=== PATIENT | female | born 1975 | race Two or more races ===

== ENCOUNTER 2022-10-19 13:53 | Emergency (ER) | payer OTHER ==
[~2022-10-19] VITALS: Ht 157.5 cm; Wt 76.2 kg
[2022-10-19 16:34] VITALS: BP 119/52; PULSE 87; RESP 17; TEMP 98.9; O2SAT 97
== END 2022-10-19 16:37 | disposition home or self-care (01) ==
LOC: ER 13:53
DX: H54.7 Unspecified visual loss (principal); T38.0X5A Adverse effect of glucocorticoids and synthetic analogues, initial encounter; Z90.89 Acquired absence of other organs; Z98.890 Other specified postprocedural states; Y92.89 Other specified places as the place of occurrence of the external cause